=== PATIENT | male | born 1970 | race African-American/Black ===

== ENCOUNTER 2023-03-17 13:03 | Inpatient (IN) | payer MEDICAID, OTHER ==
[~2023-03-17] VITALS: Ht 180.3 cm; Wt 72.1 kg
[2023-03-17] MEDS ORDERED: ASCO500C17 PO (13:43)
[2023-03-17] MEDS ORDERED: CYAN-51 PO (13:43)
[2023-03-17] MEDS ORDERED: GUAI100S69 PO (13:43)
[2023-03-17] MEDS ORDERED: POLY17PO4 PO (13:43)
[2023-03-17] MEDS ORDERED: ONDA4TAB11 PO (13:43)
[2023-03-17] MEDS ORDERED: BENZ1LOZ58 PO (13:43)
[2023-03-17] MEDS ORDERED: FOLI0.8T41 PO (13:43)
[2023-03-17] MEDS ORDERED: BISA10SU61 RC (13:43)
[2023-03-17] MEDS ORDERED: SENN8.6T19 PO (13:43)
[2023-03-17] MEDS ORDERED: FERR325T28 PO (13:43)
[2023-03-17] MEDS ORDERED: MAGN200T5 PO (13:43)
[2023-03-17] MEDS ORDERED: ACET-3117 PO (13:43)
[2023-03-17] MEDS ORDERED: HYDR-3972 PO (13:43)
[2023-03-17] MEDS ORDERED: PANT40TA49 PO (13:43)
[2023-03-17] MEDS ORDERED: METO100T14 PO (13:43)
[2023-03-17] MEDS ORDERED: CALC500T88 PO (13:43)
[2023-03-17] MEDS ORDERED: DAKINS TP (13:43)
[2023-03-17] MEDS ORDERED: THIA100T13 PO (13:43)
[2023-03-17] MEDS ORDERED: SODI650T PO (13:43)
[2023-03-17] MEDS ORDERED: ZINC50TA69 PO (13:43)
[2023-03-17] MEDS ORDERED: METO5TAB87 PO (13:43)
[2023-03-17] MEDS ORDERED: LACT10SO58 PO (13:43)
[2023-03-17] MEDS ORDERED: ACETAMINOPHEN 325 MG TABLET ONE (13:45)
[2023-03-17] MEDS ORDERED: ACETAMINOPHEN 325 MG TABLET PO ONE (14:15)
[2023-03-17] MEDS ORDERED: VANCOMYCIN 1G/D5W 200 ML PIGGYBACK IV ONE (15:30)
[2023-03-17] MEDS ORDERED: IV NORMAL SALINE 1000 ML BAG IV ONE (15:30)
[2023-03-17] MEDS ORDERED: CEFEPIME HCL 1 G in IV DEXTROSE 5% 50 ML IV ONE (15:30)
[2023-03-17 15:57] LABS: BASOPHILS # (AUTO) 0.1 K/UL (0.0-0.2); BASOPHILS % (AUTO) 0.5 % (0.0-2.0); DIFFERENTIAL COMMENT 0; EOSINOPHILS % (AUTO) 0.3 % (0.0-7.0); HEMATOCRIT 21.9 % (36.7-47.1); LYMPHOCYTES # (AUTO) 0.2 K/uL (0.8-4.8); MEAN CORPUSCULAR HGB CONC 31 g/dL (32.5-36.3); MEAN CORPUSCULAR VOLUME 80.7 fL (73.0-96.2); MONOCYTES # (AUTO) 1.2 K/uL (0.1-1.30); MONOCYTES % (AUTO) 9.6 % (0.0-11.0); NEUTROPHILS # (AUTO) 10.9 K/uL (1.8-8.9); NEUTROPHILS % (AUTO) 87.6 % (38.5-71.5); PLATELET COUNT (AUTO) 196 K/uL (152-348); RED BLOOD CELL COUNT(AUTO) 2.72 MIL/uL (4.06-5.63); WHITE BLOOD COUNT (AUTO) 12.5 K/uL (3.6-10.2)
[2023-03-17 16:01] LABS: HEMOGLOBIN 6.8 g/dL (12.5-16.3)
[2023-03-17 16:05] LABS: CALCIUM 8.3 mg/dL (8.5-10.1); CARBON DIOXIDE 18 mmol/L (21-32); CHLORIDE 95 mmol/L (98-107); CREATININE 6.8 mg/dL (0.6-1.3); GLUCOSE 113 mg/dL (74-106); POTASSIUM 4.4 mmol/L (3.5-5.1); SODIUM SERUM 128 mmol/L (136-145); UREA NITROGEN, BLOOD 73 mg/dL (7-18)
[2023-03-17 16:13] LABS: ALANINE AMINOTRANSFERASE 37 U/L (16-63); ALKALINE PHOSPHATASE 132 U/L (50-136); ASPARTATE AMINOTRANSFERASE 66 U/L (15-37); BILIRUBIN,DIRECT 0.3 mg/dL (0.0-0.2); BILIRUBIN,TOTAL 0.5 mg/dL (0.2-1.0); TOTAL PROTEIN, SERUM 6.2 g/dL (6.4-8.2)
[2023-03-17 16:17] LABS: ALBUMIN 1.3 g/dL (3.4-5.0); LACTIC ACID 2.3 mmol/L (0.4-2.0)
[2023-03-17] MEDS ORDERED: CEFEPIME HCL 1 G VIAL ONE (17:17)
[2023-03-17] MEDS ORDERED: VANCOMYCIN IV 200 ML ONE (17:17)
[2023-03-17] MEDS ORDERED: INSULIN REGULAR, HUMAN 300 UNIT/3 ML VIAL SQ PRN (21:15)
[2023-03-17] MEDS ORDERED: DEXTROSE 50% 50 ML DISP.SYRIN IV PRN (21:15)
[2023-03-17] MEDS ORDERED: ONDANSETRON 4 MG/2 ML VIAL IV PRN (21:15)
[2023-03-17] MEDS ORDERED: MAGNESIUM HYDROXIDE 30 ML LIQUID UDC PO PRN (21:15)
[2023-03-17] MEDS ORDERED: CEFEPIME HCL 1 G in IV DEXTROSE 5% 50 ML IV SCH (22:00)
[2023-03-17 23:30] VITALS: BP 102/67; TEMP 97.2; O2SAT 98
[2023-03-18] VITALS (10 sets, daily range): BP systolic 97–115; BP diastolic 46–68; TEMP 97.7–101.9; O2SAT 96–99
[2023-03-18] MEDS: ACETAMINOPHEN 325 MG TABLET PO PRN ×2 (04:06→19:55)
[2023-03-18] MEDS: BLOOD SUGAR DIAGNOSTIC 1 EACH STRIP VI SCH ×4 (06:11→21:58)
[2023-03-18 07:13] LABS: BASOPHILS % (AUTO) 0.2 % (0.0-2.0); EOSINOPHILS # (AUTO) 0.1 K/uL (0.0-0.7); HEMATOCRIT 21.4 % (36.7-47.1); LYMPHOCYTES # (AUTO) 0.2 K/uL (0.8-4.8); LYMPHOCYTES % (AUTO) 1.4 % (20.5-51.5); MEAN CORPUSCULAR HEMOGLOBIN 25.7 uug (23.8-33.4); MEAN CORPUSCULAR HGB CONC 32 g/dL (32.5-36.3); MEAN CORPUSCULAR VOLUME 80.1 fL (73.0-96.2); MONOCYTES # (AUTO) 0.8 K/uL (0.1-1.30); NEUTROPHILS # (AUTO) 10.1 K/uL (1.8-8.9); NEUTROPHILS % (AUTO) 90.4 % (38.5-71.5); PLATELET COUNT (AUTO) 222 K/uL (152-348); RED BLOOD CELL COUNT(AUTO) 2.67 MIL/uL (4.06-5.63); RED CELL DISTRIBUTION WIDTH 19.3 % (12.1-16.2); WHITE BLOOD COUNT (AUTO) 11.2 K/uL (3.6-10.2)
[2023-03-18 07:26] LABS: CALCIUM 7.9 mg/dL (8.5-10.1); CREATININE 7.2 mg/dL (0.6-1.3); MAGNESIUM 1.8 mg/dL (1.8-2.4); PHOSPHOROUS 4.3 mg/dL (2.5-4.9); POTASSIUM 4.1 mmol/L (3.5-5.1)
[2023-03-18 08:31] LABS: DIFFERENTIAL COMMENT 1; HEMOGLOBIN 6.9 g/dL (12.5-16.3)
[2023-03-18 08:33] LABS: LYMPHOCYTES % (MANUAL) 0 % (20-40); NEUTROPHILS % (MANUAL) 0 % (42-75)
[2023-03-18] MEDS ORDERED: VANCOMYCIN IV 500 MG in IV DEXTROSE 5% 100 ML IV PRN (10:00)
[2023-03-18] MEDS: FERROUS SULFATE 325 MG TABEC PO SCH (10:07)
[2023-03-18] MEDS: SODIUM HYPOCHLORITE 0.125% (QUARTER STRENGTH) 473 ML BOTTLE TP SCH (10:08)
[2023-03-18] MEDS: THIAMINE HCL 100 MG TABLET PO SCH (10:08)
[2023-03-18] MEDS: ASCORBIC ACID 500 MG TABLET PO SCH (10:08)
[2023-03-18] MEDS: ZINC SULFATE 220 MG CAPSULE PO SCH (10:08)
[2023-03-18] MEDS: CYANOCOBALAMIN 1,000 MCG TABLET PO SCH (10:08)
[2023-03-18] MEDS: PANTOPRAZOLE SODIUM 40 MG TABLET.DR PO SCH (10:13)
[2023-03-18] MEDS: SODIUM BICARBONATE 650 MG TABLET PO SCH ×2 (10:22→17:36)
[2023-03-18] MEDS ORDERED: PIPERACILLIN SODIUM/TAZOBACTAM 3.375 G in IV DEXTROSE 5% 50 ML IV SCH (12:00)
[2023-03-18] MEDS: PIPERACILLIN/TAZO 2.25 G in IV DEXTROSE 5% 50 ML IV SCH ×2 (14:27→22:31)
[2023-03-18] MEDS ORDERED: CEFEPIME HCL 1 G in IV DEXTROSE 5% 50 ML IV SCH (21:00)
[2023-03-18] MEDS: FOLIC ACID/VITAMIN B COMP W-C TABLET PO SCH (21:51)
[2023-03-19] VITALS: BP 110/64; TEMP 100.1; O2SAT 100
[2023-03-19 04:00] VITALS: BP 113/69; TEMP 98.8; O2SAT 98
[2023-03-19] MEDS: PIPERACILLIN/TAZO 2.25 G in IV DEXTROSE 5% 50 ML IV SCH ×3 (06:33→21:49)
[2023-03-19 07:24] LABS: BASOPHILS # (AUTO) 0.1 K/UL (0.0-0.2); EOSINOPHILS # (AUTO) 0.1 K/uL (0.0-0.7); EOSINOPHILS % (AUTO) 1.1 % (0.0-7.0); LYMPHOCYTES # (AUTO) 0.3 K/uL (0.8-4.8); NEUTROPHILS # (AUTO) 9.9 K/uL (1.8-8.9); WHITE BLOOD COUNT (AUTO) 11.4 K/uL (3.6-10.2)
[2023-03-19 07:29] LABS: BASOPHILS % (AUTO) 0.8 % (0.0-2.0); LYMPHOCYTES % (AUTO) 2.6 % (20.5-51.5); MEAN CORPUSCULAR HEMOGLOBIN 25.5 uug (23.8-33.4); MEAN CORPUSCULAR HGB CONC 32 g/dL (32.5-36.3); MEAN CORPUSCULAR VOLUME 79.3 fL (73.0-96.2); NEUTROPHILS % (AUTO) 86.5 % (38.5-71.5); PLATELET COUNT (AUTO) 205 K/uL (152-348); RED CELL DISTRIBUTION WIDTH 18.9 % (12.1-16.2)
[2023-03-19] MEDS: BLOOD SUGAR DIAGNOSTIC 1 EACH STRIP VI SCH ×4 (07:30→20:55)
[2023-03-19 07:34] LABS: CALCIUM 7.7 mg/dL (8.5-10.1); MAGNESIUM 1.8 mg/dL (1.8-2.4); PHOSPHOROUS 4.1 mg/dL (2.5-4.9); POTASSIUM 4.3 mmol/L (3.5-5.1)
[2023-03-19 07:35] LABS: HEMOGLOBIN 7.4 g/dL (12.5-16.3)
[2023-03-19 07:36] LABS: DIFFERENTIAL COMMENT 1
[2023-03-19 07:42] LABS: CREATININE 7.6 mg/dL (0.6-1.3)
[2023-03-19] MEDS: NEPRO (VANILLA) 237 ML CAN PO SCH (09:00)
[2023-03-19] MEDS: ZINC SULFATE 220 MG CAPSULE PO SCH (09:55)
[2023-03-19] MEDS: SODIUM BICARBONATE 650 MG TABLET PO SCH ×2 (09:55→16:08)
[2023-03-19] MEDS: ASCORBIC ACID 500 MG TABLET PO SCH (09:55)
[2023-03-19] MEDS: FERROUS SULFATE 325 MG TABEC PO SCH (09:55)
[2023-03-19] MEDS: CYANOCOBALAMIN 1,000 MCG TABLET PO SCH (09:55)
[2023-03-19] MEDS: THIAMINE HCL 100 MG TABLET PO SCH (09:55)
[2023-03-19] MEDS: PANTOPRAZOLE SODIUM 40 MG TABLET.DR PO SCH (09:56)
[2023-03-19] MEDS: SODIUM HYPOCHLORITE 0.125% (QUARTER STRENGTH) 473 ML BOTTLE TP SCH (09:56)
[2023-03-19] MEDS: MEDIHONEY= THERAHONEY 1.5 OZ TUBE TOP SCH (09:56)
[2023-03-19 10:44] LABS: HIV-1 p24 ANTIGEN NON REACTIVE (NONREACTIVE); HIV-1/2 ANTIBODY NON REACTIVE (NONREACTIVE)
[2023-03-19 11:24] VITALS: BP 105/66; TEMP 98.8; O2SAT 98
[2023-03-19 16:10] VITALS: BP 109/66; TEMP 98.3; O2SAT 98
[2023-03-19] MEDS: ACETAMINOPHEN 325 MG TABLET PO PRN (19:49)
[2023-03-19 20:07] VITALS: BP 104/53; TEMP 102.6; O2SAT 97
[2023-03-19] MEDS: FOLIC ACID/VITAMIN B COMP W-C TABLET PO SCH (21:00)
[2023-03-19 22:16] VITALS: TEMP 99.6; O2SAT 97
[2023-03-19] MEDS ORDERED: VANCOMYCIN IV 1,000 MG in IV DEXTROSE 5% 250 ML IV ONE (23:00)
[2023-03-20 04:30] VITALS: BP 99/63; TEMP 98.6; O2SAT 98
[2023-03-20] MEDS ORDERED: VANCOMYCIN IV 1,000 MG in IV DEXTROSE 5% 250 ML IV ONE (05:15)
[2023-03-20] MEDS: PIPERACILLIN/TAZO 2.25 G in IV DEXTROSE 5% 50 ML IV SCH ×2 (06:52→14:11)
[2023-03-20] MEDS: BLOOD SUGAR DIAGNOSTIC 1 EACH STRIP VI SCH ×4 (07:59→20:31)
[2023-03-20] MEDS: CYANOCOBALAMIN 1,000 MCG TABLET PO SCH (08:45)
[2023-03-20] MEDS: ASCORBIC ACID 500 MG TABLET PO SCH (08:45)
[2023-03-20] MEDS: ZINC SULFATE 220 MG CAPSULE PO SCH (08:45)
[2023-03-20] MEDS: PANTOPRAZOLE SODIUM 40 MG TABLET.DR PO SCH (08:45)
[2023-03-20] MEDS: FERROUS SULFATE 325 MG TABEC PO SCH (08:45)
[2023-03-20] MEDS: THIAMINE HCL 100 MG TABLET PO SCH (08:45)
[2023-03-20] MEDS: SODIUM BICARBONATE 650 MG TABLET PO SCH ×2 (08:46→16:25)
[2023-03-20] MEDS: MEDIHONEY= THERAHONEY 1.5 OZ TUBE TOP SCH (08:46)
[2023-03-20] MEDS: SODIUM HYPOCHLORITE 0.125% (QUARTER STRENGTH) 473 ML BOTTLE TP SCH (08:46)
[2023-03-20] MEDS: NEPRO (VANILLA) 237 ML CAN PO SCH (09:00)
[2023-03-20 11:20] VITALS: BP 99/46; TEMP 99; O2SAT 96
[2023-03-20 15:47] VITALS: BP 97/48; TEMP 100.1; O2SAT 100
[2023-03-20] MEDS: MEROPENEM 500 MG in IV NORMAL SALINE 50 ML IV SCH (16:25)
[2023-03-20] MEDS: ACETAMINOPHEN 325 MG TABLET PO PRN (16:25)
[2023-03-20 20:20] VITALS: BP 106/67; TEMP 97.6; O2SAT 99
[2023-03-20] MEDS: FOLIC ACID/VITAMIN B COMP W-C TABLET PO SCH (20:23)
[2023-03-21] MEDS: MEROPENEM 500 MG in IV NORMAL SALINE 50 ML IV SCH (04:18)
[2023-03-21 04:38] VITALS: BP 110/66; TEMP 98.5; O2SAT 99
[2023-03-21] MEDS: GUAIFENESIN/DEXTROMETHORPHAN 5 ML UDC PO PRN ×3 (06:42→22:55)
[2023-03-21] MEDS: BLOOD SUGAR DIAGNOSTIC 1 EACH STRIP VI SCH ×4 (07:40→21:00)
[2023-03-21] MEDS: ASCORBIC ACID 500 MG TABLET PO SCH (09:08)
[2023-03-21] MEDS: CYANOCOBALAMIN 1,000 MCG TABLET PO SCH (09:08)
[2023-03-21] MEDS: ZINC SULFATE 220 MG CAPSULE PO SCH (09:09)
[2023-03-21] MEDS: PANTOPRAZOLE SODIUM 40 MG TABLET.DR PO SCH (09:09)
[2023-03-21] MEDS: FERROUS SULFATE 325 MG TABEC PO SCH (09:09)
[2023-03-21] MEDS: SODIUM BICARBONATE 650 MG TABLET PO SCH ×2 (09:09→17:13)
[2023-03-21] MEDS: THIAMINE HCL 100 MG TABLET PO SCH (09:09)
[2023-03-21] MEDS: NEPRO (VANILLA) 237 ML CAN PO SCH (09:10)
[2023-03-21] MEDS: MEDIHONEY= THERAHONEY 1.5 OZ TUBE TOP SCH (09:16)
[2023-03-21] MEDS: SODIUM HYPOCHLORITE 0.125% (QUARTER STRENGTH) 473 ML BOTTLE TP SCH (09:17)
[2023-03-21 11:51] VITALS: BP 123/62; TEMP 97.3; O2SAT 100
[2023-03-21 13:10] LABS: BASOPHILS # (AUTO) 0.1 K/UL (0.0-0.2); BASOPHILS % (AUTO) 0.6 % (0.0-2.0); EOSINOPHILS # (AUTO) 0.2 K/uL (0.0-0.7); HEMATOCRIT 22.6 % (36.7-47.1); LYMPHOCYTES # (AUTO) 0.4 K/uL (0.8-4.8); LYMPHOCYTES % (AUTO) 2.5 % (20.5-51.5); MEAN CORPUSCULAR HEMOGLOBIN 25.2 uug (23.8-33.4); MEAN CORPUSCULAR HGB CONC 31 g/dL (32.5-36.3); MEAN CORPUSCULAR VOLUME 81.2 fL (73.0-96.2); MONOCYTES # (AUTO) 1.1 K/uL (0.1-1.30); MONOCYTES % (AUTO) 6.7 % (0.0-11.0); NEUTROPHILS # (AUTO) 14.5 K/uL (1.8-8.9); NEUTROPHILS % (AUTO) 89.2 % (38.5-71.5); PLATELET COUNT (AUTO) 250 K/uL (152-348); RED BLOOD CELL COUNT(AUTO) 2.78 MIL/uL (4.06-5.63); WHITE BLOOD COUNT (AUTO) 16.2 K/uL (3.6-10.2)
[2023-03-21 13:21] LABS: CREATININE 6.3 mg/dL (0.6-1.3); MAGNESIUM 1.8 mg/dL (1.8-2.4); PHOSPHOROUS 3.6 mg/dL (2.5-4.9); POTASSIUM 4.6 mmol/L (3.5-5.1)
[2023-03-21 13:28] LABS: CALCIUM 7.9 mg/dL (8.5-10.1); DIFFERENTIAL COMMENT 1
[2023-03-21 16:43] VITALS: BP 109/61; TEMP 99.6; O2SAT 97
[2023-03-21] MEDS: ACETAMINOPHEN 325 MG TABLET PO PRN (19:54)
[2023-03-21 20:26] VITALS: BP 112/62; TEMP 101.8; O2SAT 97
[2023-03-21] MEDS ORDERED: VANCOMYCIN IV 500 MG in IV DEXTROSE 5% 100 ML IV ONE (21:00)
[2023-03-21] MEDS: FOLIC ACID/VITAMIN B COMP W-C TABLET PO SCH (22:34)
[2023-03-22 04:24] VITALS: BP 108/72; TEMP 98.3; O2SAT 99
[2023-03-22] MEDS: BLOOD SUGAR DIAGNOSTIC 1 EACH STRIP VI SCH ×4 (08:25→22:11)
[2023-03-22] MEDS: PANTOPRAZOLE SODIUM 40 MG TABLET.DR PO SCH (09:39)
[2023-03-22] MEDS: FERROUS SULFATE 325 MG TABEC PO SCH (09:39)
[2023-03-22] MEDS: THIAMINE HCL 100 MG TABLET PO SCH (09:40)
[2023-03-22] MEDS: SODIUM BICARBONATE 650 MG TABLET PO SCH ×2 (09:40→17:09)
[2023-03-22] MEDS: CYANOCOBALAMIN 1,000 MCG TABLET PO SCH (09:40)
[2023-03-22] MEDS: ZINC SULFATE 220 MG CAPSULE PO SCH (09:40)
[2023-03-22] MEDS: ASCORBIC ACID 500 MG TABLET PO SCH (09:40)
[2023-03-22] MEDS: NEPRO (VANILLA) 237 ML CAN PO SCH (09:40)
[2023-03-22] MEDS: MEDIHONEY= THERAHONEY 1.5 OZ TUBE TOP SCH (09:42)
[2023-03-22] MEDS: SODIUM HYPOCHLORITE 0.125% (QUARTER STRENGTH) 473 ML BOTTLE TP SCH (09:42)
[2023-03-22 11:07] VITALS: BP 134/78; TEMP 97.6; O2SAT 100
[2023-03-22 15:22] VITALS: BP 138/78; TEMP 98.6; O2SAT 98
[2023-03-22 20:21] VITALS: BP 135/83; TEMP 100; O2SAT 98
[2023-03-22] MEDS: MEROPENEM 500 MG in IV NORMAL SALINE 50 ML IV SCH (20:38)
[2023-03-22] MEDS ORDERED: VANCOMYCIN IV 500 MG in IV DEXTROSE 5% 100 ML IV ONE (21:00)
[2023-03-22] MEDS: FOLIC ACID/VITAMIN B COMP W-C TABLET PO SCH (21:58)
[2023-03-23 04:38] VITALS: BP 103/58; TEMP 97.5; O2SAT 99
[2023-03-23] MEDS: BLOOD SUGAR DIAGNOSTIC 1 EACH STRIP VI SCH ×4 (06:52→21:00)
[2023-03-23] MEDS: PANTOPRAZOLE SODIUM 40 MG TABLET.DR PO SCH (09:13)
[2023-03-23] MEDS: ZINC SULFATE 220 MG CAPSULE PO SCH (09:13)
[2023-03-23] MEDS: CYANOCOBALAMIN 1,000 MCG TABLET PO SCH (09:13)
[2023-03-23] MEDS: FERROUS SULFATE 325 MG TABEC PO SCH (09:13)
[2023-03-23] MEDS: THIAMINE HCL 100 MG TABLET PO SCH (09:14)
[2023-03-23] MEDS: ASCORBIC ACID 500 MG TABLET PO SCH (09:14)
[2023-03-23] MEDS: SODIUM BICARBONATE 650 MG TABLET PO SCH ×2 (09:17→17:41)
[2023-03-23] MEDS: MEDIHONEY= THERAHONEY 1.5 OZ TUBE TOP SCH (09:17)
[2023-03-23] MEDS: SODIUM HYPOCHLORITE 0.125% (QUARTER STRENGTH) 473 ML BOTTLE TP SCH (09:17)
[2023-03-23] MEDS: NEPRO (VANILLA) 237 ML CAN PO SCH (09:18)
[2023-03-23 11:40] VITALS: BP 124/71; TEMP 97.2; O2SAT 96
[2023-03-23 14:06] LABS: HEPATITIS B SURFACE AB, QUAL Non Reactive (.); HEPATITIS B SURFACE AG Negative (Negative)
[2023-03-23] MEDS: ACETAMINOPHEN 325 MG TABLET PO PRN (14:54)
[2023-03-23 15:22] VITALS: BP 150/76; TEMP 100.4; O2SAT 98
[2023-03-23 20:00] VITALS: BP 120/77; TEMP 98.3; O2SAT 95
[2023-03-23] MEDS: MEROPENEM 500 MG in IV NORMAL SALINE 50 ML IV SCH (20:31)
[2023-03-23] MEDS: FOLIC ACID/VITAMIN B COMP W-C TABLET PO SCH (20:49)
[2023-03-24] VITALS (10 sets, daily range): BP systolic 115–155; BP diastolic 64–91; TEMP 97.5–102.7; O2SAT 95–100
[2023-03-24] MEDS: BLOOD SUGAR DIAGNOSTIC 1 EACH STRIP VI SCH ×4 (06:33→20:47)
[2023-03-24 07:02] LABS: BASOPHILS # (AUTO) 0.1 K/UL (0.0-0.2); BASOPHILS % (AUTO) 0.4 % (0.0-2.0); EOSINOPHILS # (AUTO) 0.1 K/uL (0.0-0.7); EOSINOPHILS % (AUTO) 0.9 % (0.0-7.0); HEMATOCRIT 22.1 % (36.7-47.1); LYMPHOCYTES # (AUTO) 0.6 K/uL (0.8-4.8); LYMPHOCYTES % (AUTO) 4.9 % (20.5-51.5); MEAN CORPUSCULAR HEMOGLOBIN 25.7 uug (23.8-33.4); MEAN CORPUSCULAR HGB CONC 31 g/dL (32.5-36.3); MONOCYTES # (AUTO) 1.3 K/uL (0.1-1.30); MONOCYTES % (AUTO) 11.1 % (0.0-11.0); NEUTROPHILS % (AUTO) 82.7 % (38.5-71.5); PLATELET COUNT (AUTO) 327 K/uL (152-348); RED CELL DISTRIBUTION WIDTH 19.8 % (12.1-16.2); WHITE BLOOD COUNT (AUTO) 12.1 K/uL (3.6-10.2)
[2023-03-24 07:25] LABS: HEMOGLOBIN 6.9 g/dL (12.5-16.3)
[2023-03-24 07:26] LABS: DIFFERENTIAL COMMENT 1
[2023-03-24 07:31] LABS: CREATININE 6.2 mg/dL (0.6-1.3); POTASSIUM 5.9 mmol/L (3.5-5.1)
[2023-03-24] MEDS: ZINC SULFATE 220 MG CAPSULE PO SCH (09:24)
[2023-03-24] MEDS: ASCORBIC ACID 500 MG TABLET PO SCH (09:24)
[2023-03-24] MEDS: CYANOCOBALAMIN 1,000 MCG TABLET PO SCH (09:25)
[2023-03-24] MEDS: THIAMINE HCL 100 MG TABLET PO SCH (09:25)
[2023-03-24] MEDS: PANTOPRAZOLE SODIUM 40 MG TABLET.DR PO SCH (09:25)
[2023-03-24] MEDS: FERROUS SULFATE 325 MG TABEC PO SCH (09:25)
[2023-03-24] MEDS: SODIUM BICARBONATE 650 MG TABLET PO SCH ×2 (09:29→17:28)
[2023-03-24] MEDS: MEDIHONEY= THERAHONEY 1.5 OZ TUBE TOP SCH (09:31)
[2023-03-24] MEDS: SODIUM HYPOCHLORITE 0.125% (QUARTER STRENGTH) 473 ML BOTTLE TP SCH (09:31)
[2023-03-24 09:34] LABS: LYMPHOCYTES % (MANUAL) 0 % (20-40); NEUTROPHILS % (MANUAL) 0 % (42-75)
[2023-03-24] MEDS: GUAIFENESIN/DEXTROMETHORPHAN 5 ML UDC PO PRN (15:45)
[2023-03-24] MEDS ORDERED: VANCOMYCIN IV 500 MG in IV DEXTROSE 5% 100 ML IV SCH (17:00)
[2023-03-24] MEDS: ACETAMINOPHEN 325 MG TABLET PO PRN (18:33)
[2023-03-24] MEDS: MEROPENEM 500 MG in IV NORMAL SALINE 50 ML IV SCH (20:08)
[2023-03-24] MEDS: FOLIC ACID/VITAMIN B COMP W-C TABLET PO SCH (20:11)
[2023-03-25 04:37] VITALS: BP 145/83; TEMP 97.9; O2SAT 98
[2023-03-25] MEDS: BLOOD SUGAR DIAGNOSTIC 1 EACH STRIP VI SCH ×5 (06:11→21:17)
[2023-03-25 08:00] VITALS: BP 141/83; TEMP 99; O2SAT 100
[2023-03-25] MEDS: SODIUM BICARBONATE 650 MG TABLET PO SCH ×2 (08:51→17:11)
[2023-03-25] MEDS: FERROUS SULFATE 325 MG TABEC PO SCH (08:52)
[2023-03-25] MEDS: PANTOPRAZOLE SODIUM 40 MG TABLET.DR PO SCH (08:52)
[2023-03-25] MEDS: ZINC SULFATE 220 MG CAPSULE PO SCH (08:52)
[2023-03-25] MEDS: CYANOCOBALAMIN 1,000 MCG TABLET PO SCH (08:52)
[2023-03-25] MEDS: THIAMINE HCL 100 MG TABLET PO SCH (08:52)
[2023-03-25] MEDS: ASCORBIC ACID 500 MG TABLET PO SCH (08:52)
[2023-03-25] MEDS: SODIUM HYPOCHLORITE 0.125% (QUARTER STRENGTH) 473 ML BOTTLE TP SCH (08:53)
[2023-03-25] MEDS: MEDIHONEY= THERAHONEY 1.5 OZ TUBE TOP SCH (08:53)
[2023-03-25 11:48] VITALS: BP 139/82; TEMP 98.2; O2SAT 97
[2023-03-25 16:09] VITALS: BP 144/89; TEMP 99.7; O2SAT 97
[2023-03-25] MEDS: MEROPENEM 500 MG in IV NORMAL SALINE 50 ML IV SCH (20:15)
[2023-03-25 20:20] VITALS: BP 143/75; TEMP 99.1; O2SAT 96
[2023-03-25] MEDS: FOLIC ACID/VITAMIN B COMP W-C TABLET PO SCH (21:12)
[2023-03-26 04:30] VITALS: BP 154/94; TEMP 98.5; O2SAT 100
[2023-03-26] MEDS: BLOOD SUGAR DIAGNOSTIC 1 EACH STRIP VI SCH ×4 (06:35→21:42)
[2023-03-26 07:08] LABS: CALCIUM 8.4 mg/dL (8.5-10.1); CREATININE 5.9 mg/dL (0.6-1.3); POTASSIUM 5.8 mmol/L (3.5-5.1)
[2023-03-26 07:09] LABS: BASOPHILS % (AUTO) 0.4 % (0.0-2.0); DIFFERENTIAL COMMENT 0; EOSINOPHILS # (AUTO) 0.2 K/uL (0.0-0.7); EOSINOPHILS % (AUTO) 1.6 % (0.0-7.0); HEMATOCRIT 25.7 % (36.7-47.1); LYMPHOCYTES # (AUTO) 0.8 K/uL (0.8-4.8); LYMPHOCYTES % (AUTO) 6.4 % (20.5-51.5); MEAN CORPUSCULAR HEMOGLOBIN 25.6 uug (23.8-33.4); MEAN CORPUSCULAR HGB CONC 31 g/dL (32.5-36.3); MEAN CORPUSCULAR VOLUME 82.4 fL (73.0-96.2); MONOCYTES # (AUTO) 1.1 K/uL (0.1-1.30); MONOCYTES % (AUTO) 9.2 % (0.0-11.0); NEUTROPHILS % (AUTO) 82.4 % (38.5-71.5); PLATELET COUNT (AUTO) 341 K/uL (152-348); RED BLOOD CELL COUNT(AUTO) 3.12 MIL/uL (4.06-5.63); RED CELL DISTRIBUTION WIDTH 19.6 % (12.1-16.2); WHITE BLOOD COUNT (AUTO) 12.2 K/uL (3.6-10.2)
[2023-03-26 08:00] VITALS: BP 143/95; TEMP 98.5; O2SAT 99
[2023-03-26] MEDS: ZINC SULFATE 220 MG CAPSULE PO SCH (08:44)
[2023-03-26] MEDS: ASCORBIC ACID 500 MG TABLET PO SCH (08:45)
[2023-03-26] MEDS: SODIUM BICARBONATE 650 MG TABLET PO SCH ×2 (08:45→17:27)
[2023-03-26] MEDS: FERROUS SULFATE 325 MG TABEC PO SCH (08:45)
[2023-03-26] MEDS: CYANOCOBALAMIN 1,000 MCG TABLET PO SCH (08:45)
[2023-03-26] MEDS: PANTOPRAZOLE SODIUM 40 MG TABLET.DR PO SCH (08:45)
[2023-03-26] MEDS: THIAMINE HCL 100 MG TABLET PO SCH (08:45)
[2023-03-26] MEDS: MEDIHONEY= THERAHONEY 1.5 OZ TUBE TOP SCH (08:46)
[2023-03-26] MEDS: SODIUM HYPOCHLORITE 0.125% (QUARTER STRENGTH) 473 ML BOTTLE TP SCH (08:46)
[2023-03-26 11:49] VITALS: BP 126/78; TEMP 98; O2SAT 98
[2023-03-26 16:22] VITALS: BP 139/80; TEMP 98.9; O2SAT 98
[2023-03-26 21:30] VITALS: BP 150/87; TEMP 100.5; O2SAT 99
[2023-03-26] MEDS: MEROPENEM 500 MG in IV NORMAL SALINE 50 ML IV SCH (21:32)
[2023-03-26] MEDS: FOLIC ACID/VITAMIN B COMP W-C TABLET PO SCH (21:32)
[2023-03-26] MEDS: ACETAMINOPHEN 325 MG TABLET PO PRN (22:26)
[2023-03-27 04:43] VITALS: BP 165/94; TEMP 98.9; O2SAT 98
[2023-03-27] MEDS: BLOOD SUGAR DIAGNOSTIC 1 EACH STRIP VI SCH ×4 (07:31→20:39)
[2023-03-27 08:04] VITALS: BP 138/88; TEMP 98.6; O2SAT 98
[2023-03-27] MEDS: THIAMINE HCL 100 MG TABLET PO SCH (08:38)
[2023-03-27] MEDS: ZINC SULFATE 220 MG CAPSULE PO SCH (08:38)
[2023-03-27] MEDS: CYANOCOBALAMIN 1,000 MCG TABLET PO SCH (08:38)
[2023-03-27] MEDS: PANTOPRAZOLE SODIUM 40 MG TABLET.DR PO SCH (08:38)
[2023-03-27] MEDS: ASCORBIC ACID 500 MG TABLET PO SCH (08:38)
[2023-03-27] MEDS: FERROUS SULFATE 325 MG TABEC PO SCH (08:38)
[2023-03-27] MEDS: SODIUM HYPOCHLORITE 0.125% (QUARTER STRENGTH) 473 ML BOTTLE TP SCH (08:39)
[2023-03-27] MEDS: MEDIHONEY= THERAHONEY 1.5 OZ TUBE TOP SCH (08:39)
[2023-03-27] MEDS: SODIUM BICARBONATE 650 MG TABLET PO SCH ×2 (09:54→16:26)
[2023-03-27 11:14] VITALS: BP 128/85; TEMP 98.6; O2SAT 99
[2023-03-27 15:13] VITALS: BP 138/82; TEMP 98.6; O2SAT 99
[2023-03-27 16:00] VITALS: BP 130/80; TEMP 98.4; O2SAT 99
[2023-03-27] MEDS: FOLIC ACID/VITAMIN B COMP W-C TABLET PO SCH (20:29)
[2023-03-27] MEDS: MEROPENEM 500 MG in IV NORMAL SALINE 50 ML IV SCH (20:30)
[2023-03-27 20:35] VITALS: BP 130/80; TEMP 98.4; O2SAT 99
[2023-03-28 04:52] VITALS: BP 139/88; TEMP 98; O2SAT 98
[2023-03-28] MEDS: BLOOD SUGAR DIAGNOSTIC 1 EACH STRIP VI SCH ×4 (06:38→21:08)
[2023-03-28] MEDS: ASCORBIC ACID 500 MG TABLET PO SCH (10:14)
[2023-03-28] MEDS: THIAMINE HCL 100 MG TABLET PO SCH (10:14)
[2023-03-28] MEDS: CYANOCOBALAMIN 1,000 MCG TABLET PO SCH (10:14)
[2023-03-28] MEDS: FERROUS SULFATE 325 MG TABEC PO SCH (10:15)
[2023-03-28] MEDS: PANTOPRAZOLE SODIUM 40 MG TABLET.DR PO SCH (10:15)
[2023-03-28] MEDS: ZINC SULFATE 220 MG CAPSULE PO SCH (10:15)
[2023-03-28] MEDS: SODIUM BICARBONATE 650 MG TABLET PO SCH ×2 (10:16→17:19)
[2023-03-28] MEDS: MEDIHONEY= THERAHONEY 1.5 OZ TUBE TOP SCH (10:20)
[2023-03-28] MEDS: SODIUM HYPOCHLORITE 0.125% (QUARTER STRENGTH) 473 ML BOTTLE TP SCH (10:20)
[2023-03-28 12:09] VITALS: BP 126/85; TEMP 98.9; O2SAT 98
[2023-03-28] MEDS: MEROPENEM 500 MG in IV NORMAL SALINE 50 ML IV SCH (12:16)
[2023-03-28 16:01] VITALS: BP 142/91; TEMP 98.5; O2SAT 100
[2023-03-28 20:25] VITALS: BP 150/86; TEMP 98.8; O2SAT 95
[2023-03-28] MEDS: FOLIC ACID/VITAMIN B COMP W-C TABLET PO SCH (21:10)
[2023-03-29] MEDS: MEROPENEM 500 MG in IV NORMAL SALINE 50 ML IV SCH ×2 (00:32→23:33)
[2023-03-29 04:30] VITALS: BP 149/88; TEMP 98.7; O2SAT 100
[2023-03-29] MEDS: BLOOD SUGAR DIAGNOSTIC 1 EACH STRIP VI SCH ×4 (07:18→21:32)
[2023-03-29] MEDS: ASCORBIC ACID 500 MG TABLET PO SCH (10:12)
[2023-03-29] MEDS: THIAMINE HCL 100 MG TABLET PO SCH (10:13)
[2023-03-29] MEDS: ZINC SULFATE 220 MG CAPSULE PO SCH (10:13)
[2023-03-29] MEDS: CYANOCOBALAMIN 1,000 MCG TABLET PO SCH (10:13)
[2023-03-29] MEDS: PANTOPRAZOLE SODIUM 40 MG TABLET.DR PO SCH (10:13)
[2023-03-29] MEDS: FERROUS SULFATE 325 MG TABEC PO SCH (10:13)
[2023-03-29] MEDS: SODIUM BICARBONATE 650 MG TABLET PO SCH ×2 (10:14→17:59)
[2023-03-29] MEDS: SODIUM HYPOCHLORITE 0.125% (QUARTER STRENGTH) 473 ML BOTTLE TP SCH (10:15)
[2023-03-29] MEDS: MEDIHONEY= THERAHONEY 1.5 OZ TUBE TOP SCH (10:15)
[2023-03-29 11:33] VITALS: BP 129/84; TEMP 97.7; O2SAT 98
[2023-03-29 15:53] VITALS: BP 137/84; TEMP 98.9; O2SAT 98
[2023-03-29 20:00] VITALS: BP 132/79; TEMP 100.3; O2SAT 98
[2023-03-29] MEDS: FOLIC ACID/VITAMIN B COMP W-C TABLET PO SCH (20:50)
[2023-03-29] MEDS: ACETAMINOPHEN 325 MG TABLET PO PRN (20:50)
[2023-03-29] MEDS: GUAIFENESIN/DEXTROMETHORPHAN 5 ML UDC PO PRN (20:50)
[2023-03-30] VITALS (7 sets, daily range): BP systolic 123–164; BP diastolic 74–93; TEMP 98.5–99.7; O2SAT 99–100
[2023-03-30] MEDS: MEROPENEM 500 MG in IV NORMAL SALINE 50 ML IV SCH ×2 (05:58→22:40)
[2023-03-30] MEDS: BLOOD SUGAR DIAGNOSTIC 1 EACH STRIP VI SCH ×4 (06:54→20:29)
[2023-03-30] MEDS: ZINC SULFATE 220 MG CAPSULE PO SCH (08:21)
[2023-03-30] MEDS: FERROUS SULFATE 325 MG TABEC PO SCH (08:22)
[2023-03-30] MEDS: THIAMINE HCL 100 MG TABLET PO SCH (08:22)
[2023-03-30] MEDS: ASCORBIC ACID 500 MG TABLET PO SCH (08:22)
[2023-03-30] MEDS: PANTOPRAZOLE SODIUM 40 MG TABLET.DR PO SCH (08:22)
[2023-03-30] MEDS: CYANOCOBALAMIN 1,000 MCG TABLET PO SCH (08:23)
[2023-03-30] MEDS: MEDIHONEY= THERAHONEY 1.5 OZ TUBE TOP SCH (08:26)
[2023-03-30] MEDS: SODIUM HYPOCHLORITE 0.125% (QUARTER STRENGTH) 473 ML BOTTLE TP SCH (08:26)
[2023-03-30] MEDS: SODIUM BICARBONATE 650 MG TABLET PO SCH ×2 (08:26→16:03)
[2023-03-30 11:30] LABS: BILIRUBIN,TOTAL 0.4 mg/dL (0.2-1.0); CALCIUM 7.4 mg/dL (8.5-10.1); POTASSIUM 4.6 mmol/L (3.5-5.1); TOTAL PROTEIN, SERUM 6.8 g/dL (6.4-8.2)
[2023-03-30 11:41] LABS: ALBUMIN 1.3 g/dL (3.4-5.0)
[2023-03-30] MEDS ORDERED: MERO500V23 IV (13:35)
[2023-03-30] MEDS ORDERED: hydrALAZINE HCL 20 MG/1 ML VIAL IV PRN (16:00)
[2023-03-30] MEDS: ACETAMINOPHEN 325 MG TABLET PO PRN (18:26)
[2023-03-30] MEDS ORDERED: METOPROLOL TARTRATE 25 MG TABLET PO ONE (19:00)
[2023-03-30] MEDS: FOLIC ACID/VITAMIN B COMP W-C TABLET PO SCH (20:25)
[2023-03-31] VITALS: BP 144/87; TEMP 99.1; O2SAT 100
[2023-03-31 04:00] VITALS: BP 128/84; TEMP 99; O2SAT 100
[2023-03-31] MEDS: BLOOD SUGAR DIAGNOSTIC 1 EACH STRIP VI SCH (06:56)
[2023-03-31 08:00] VITALS: BP 138/78; TEMP 98.6; O2SAT 99
[2023-03-31] MEDS: SODIUM HYPOCHLORITE 0.125% (QUARTER STRENGTH) 473 ML BOTTLE TP SCH (09:00)
[2023-03-31] MEDS: MEDIHONEY= THERAHONEY 1.5 OZ TUBE TOP SCH (09:00)
[2023-03-31] MEDS ORDERED: MEROPENEM 500 MG in IV NORMAL SALINE 50 ML IV SCH (09:00)
[2023-03-31] MEDS: PANTOPRAZOLE SODIUM 40 MG TABLET.DR PO SCH (09:37)
[2023-03-31] MEDS: CYANOCOBALAMIN 1,000 MCG TABLET PO SCH (09:37)
[2023-03-31] MEDS: FERROUS SULFATE 325 MG TABEC PO SCH (09:37)
[2023-03-31] MEDS: ASCORBIC ACID 500 MG TABLET PO SCH (09:37)
[2023-03-31] MEDS: SODIUM BICARBONATE 650 MG TABLET PO SCH (09:37)
[2023-03-31] MEDS: THIAMINE HCL 100 MG TABLET PO SCH (09:37)
[2023-03-31] MEDS: ZINC SULFATE 220 MG CAPSULE PO SCH (09:38)
[2023-03-31 09:41] LABS: BASOPHILS # (AUTO) 0.1 K/UL (0.0-0.2); BASOPHILS % (AUTO) 0.9 % (0.0-2.0); EOSINOPHILS # (AUTO) 0.4 K/uL (0.0-0.7); EOSINOPHILS % (AUTO) 3.3 % (0.0-7.0); HEMATOCRIT 25.8 % (36.7-47.1); HEMOGLOBIN 7.8 g/dL (12.5-16.3); LYMPHOCYTES # (AUTO) 0.8 K/uL (0.8-4.8); LYMPHOCYTES % (AUTO) 7.1 % (20.5-51.5); MEAN CORPUSCULAR HEMOGLOBIN 25.2 uug (23.8-33.4); MEAN CORPUSCULAR HGB CONC 30 g/dL (32.5-36.3); MEAN CORPUSCULAR VOLUME 82.8 fL (73.0-96.2); MONOCYTES # (AUTO) 1.1 K/uL (0.1-1.30); MONOCYTES % (AUTO) 9.1 % (0.0-11.0); NEUTROPHILS # (AUTO) 9.3 K/uL (1.8-8.9); NEUTROPHILS % (AUTO) 79.6 % (38.5-71.5); PLATELET COUNT (AUTO) 303 K/uL (152-348); RED BLOOD CELL COUNT(AUTO) 3.11 MIL/uL (4.06-5.63); RED CELL DISTRIBUTION WIDTH 18.8 % (12.1-16.2); WHITE BLOOD COUNT (AUTO) 11.7 K/uL (3.6-10.2)
[2023-03-31 09:50] LABS: DIFFERENTIAL COMMENT 1
[2023-03-31 09:52] LABS: CALCIUM 8.2 mg/dL (8.5-10.1)
[2023-03-31 10:07] LABS: THYROID STIMULATING HORMONE 2.097 mIU/mL (0.358-3.740)
[2023-03-31 10:41] LABS: POTASSIUM 5.5 mmol/L (3.5-5.1)
[2023-03-31 11:26] VITALS: BP 137/91; TEMP 97.4; O2SAT 98
== END 2023-03-31 11:32 | DRG 720 ==
LOC: ER 13:03 → TELE3 21:10 → MEDSURG3 03-19 11:15 → MED 03-23 16:07 → MEDSURG3 03-26 20:49 → TELE3 03-31 02:18
PROVIDERS: ADMIT Nurse Practitioner Acute Care; ATTEND Nurse Practitioner Acute Care
PROC: 30233N1 Transfusion of Nonautologous Red Blood Cells into Peripheral Vein, Percutaneous Approach (ICD-10-PCS; principal; 2023-03-18)
PROC: 5A1D70Z Performance of Urinary Filtration, Intermittent, Less than 6 Hours Per Day (ICD-10-PCS; 2023-03-20)
PROC: 05HC33Z Insertion of Infusion Device into Left Basilic Vein, Percutaneous Approach (ICD-10-PCS; 2023-03-21)
PROC: 30243N1 Transfusion of Nonautologous Red Blood Cells into Central Vein, Percutaneous Approach (ICD-10-PCS; 2023-03-24)
PROC: 05HB33Z Insertion of Infusion Device into Right Basilic Vein, Percutaneous Approach (ICD-10-PCS; 2023-03-25)
PROC: 02HV33Z Insertion of Infusion Device into Superior Vena Cava, Percutaneous Approach (ICD-10-PCS; 2023-03-30)
DX: A41.51 Sepsis due to Escherichia coli [E. coli] (principal); K65.1 Peritoneal abscess; E43 Unspecified severe protein-calorie malnutrition; L89.154 Pressure ulcer of sacral region, stage 4; L89.324 Pressure ulcer of left buttock, stage 4; E87.20 Acidosis, unspecified; M60.004 Infective myositis, unspecified left leg; D68.59 Other primary thrombophilia; L89.613 Pressure ulcer of right heel, stage 3; D63.1 Anemia in chronic kidney disease; E87.1 Hypo-osmolality and hyponatremia; G82.20 Paraplegia, unspecified; I12.0 Hypertensive chronic kidney disease with stage 5 chronic kidney disease or end stage renal disease; A41.59 Other Gram-negative sepsis; R65.20 Severe sepsis without septic shock; Z16.12 Extended spectrum beta lactamase (ESBL) resistance; N39.0 Urinary tract infection, site not specified; K12.2 Cellulitis and abscess of mouth; B96.89 Other specified bacterial agents as the cause of diseases classified elsewhere; N18.6 End stage renal disease; M86.8X8 Other osteomyelitis, other site; E11.69 Type 2 diabetes mellitus with other specified complication; M87.9 Osteonecrosis, unspecified; Z86.718 Personal history of other venous thrombosis and embolism; Z90.49 Acquired absence of other specified parts of digestive tract; Z93.3 Colostomy status; Z16.24 Resistance to multiple antibiotics; M24.572 Contracture, left ankle; M24.571 Contracture, right ankle; L03.317 Cellulitis of buttock; E11.22 Type 2 diabetes mellitus with diabetic chronic kidney disease; Z99.2 Dependence on renal dialysis; M00.9 Pyogenic arthritis, unspecified; Z87.891 Personal history of nicotine dependence; N21.0 Calculus in bladder; Z53.8 Procedure and treatment not carried out for other reasons; E88.09 Other disorders of plasma-protein metabolism, not elsewhere classified
CPT/HCPCS: 36415; 36569; 70030-TC; 71045; 73721; 83605; 83735; 84100; 84443; 84484; 85025; 85730; 86706; 86803; 86850; 86900; 86901; 86920; 87040; 87077; 87340; 87806; 90937; 93005; A4606; A4663; A6209; A6213; A9150; C1758; G0378; J0360; J0692; J1815; J2185; J2543; J3370; J7040; J7050; P9016